=== PATIENT | female | born 2000 | race Caucasian/White ===

== ENCOUNTER 2024-05-03 06:14 | Observation (INO) | payer OTHER | END 2024-05-03 07:35 | disposition home or self-care (01) | LOC: LDRP 06:14 | PROVIDERS: ADMIT Obstetrics & Gynecology; ATTEND Obstetrics & Gynecology | DX: O47.03 False labor before 37 completed weeks of gestation, third trimester (principal); O24.419 Gestational diabetes mellitus in pregnancy, unspecified control; O26.853 Spotting complicating pregnancy, third trimester; Z3A.35 35 weeks gestation of pregnancy; Z98.891 History of uterine scar from previous surgery | CPT/HCPCS: 59025; 81002; 82948; 82962; 94760; G0378 ==